=== PATIENT | male | born 1980 | race Caucasian/White ===

== ENCOUNTER 2019-11-17 09:40 | Emergency (ER) | payer OTHER, SELFPAY ==
[2019-11-17 10:08] VITALS: BP 122/86; PULSE 92; RESP 20; TEMP 36.6; O2SAT 100
--- NOTE | 2019-11-17 10:37 | ED.SKABFB ---
HPI - Skin/Abscess/Foreign Bdy General Chief complaint: Skin/Abscess/Foreign Body Stated complaint: poison sumac Time Seen by Provider: 11/17/19 10:37 Source: patient and RN notes reviewed Mode of arrival: ambulatory Limitations: no limitations History of Present Illness HPI narrative: This is a 39 years old male presents to the office for an evaluation of poison sumac rash. He noticed it 2 days ago on his left forearm and has now spread to his body and lower extremity. He admits to working out in the yard and wood. 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 Admits to history of poison chay/sumac rash a couple times a year during summer month. Normally he self treated because it is small however this time it is bigger and spread to multiple location. Denies rash on the face. He has tried calamine lotion with no relief. He is diabetic, sugar range between 90-105 fasting. Td is about 10-year, would like a booster. Related Data Home Medications Medication Instructions Recorded Confirmed fenofibrate 54 mg PO DAILY 11/17/19 11/17/19 lisinopril 10 mg PO DAILY 11/17/19 11/17/19 metformin 500 mg PO DAILY 11/17/19 11/17/19 Allergies Allergy/AdvReac Type Severity Reaction Status Date / Time meperidine AdvReac Intermediate Vomiting Verified 11/17/19 10:33 Review of Systems Review of Systems: Narrative: CONSTITUTIONAL: Denies fever, chills ENT: Denies tongue swelling, lip swelling or difficulty breathing CARDIOVASCULAR: Denies chest pain, palpitation, edema. RESPIRATORY: Denies dyspnea, wheezing, cough GASTROINTESTINAL: Denies abdominal pain, nausea, vomiting SKIN: Reports big rash on left arm, smaller rash on thighs and torso. MUSCULOSKELETAL: Denies joints pain NEUROLOGIC: Denies lightheaded All other systems reviewed are negative, except as documented in HPI. REPLACED BY [facility] Past Medical History Medical History Diabetic acidosis, type II HTN (hypertension) Comments At time of signature, I agree with nursing past medical, surgical, social and family history. There is no relevant family history pertinent to the presenting complaint. Exam Narrative: Exam Narrative: GENERAL: This is a well-nourished, well-developed patient, in no apparent distress. CARDIOVASCULAR: Regular rate and rhythm without murmurs, gallops, or rubs. RESPIRATORY: Clear to auscultation. Breath sounds equal bilaterally. No wheezes, rales, or rhonchi. GASTROINTESTINAL: Abdomen soft, non-tender, nondistended. Bowel sounds are active. No hepato-splenomegaly, or palpable masses. No guarding. NEURO: awake, alert, and oriented to person, place and time. There were no obvious focal neurologic abnormalities. Steady gait EXTREMITIES: left anterior forearm near AC noted erythema, vesicular lesions with linear streak. No rash noted on face or torso. Patient to decline to take his pants off for me to check the other as he brushed it off as a very minimal rash/lesions. [place] Coma Scale Eye Opening: Spontaneous 4 [place] Coma Scale Motor: Obeys Commands 6 Dov Coma Scale Verbal: Oriented 5 Course Vital Signs Vital signs: Vital Signs Temperature 97.8 F 11/17/19 10:08 Pulse Rate 92 11/17/19 10:08 Respiratory Rate 20 11/17/19 10:08 Blood Pressure 122/86 11/17/19 10:08 Pulse Oximetry 100 11/17/19 10:08 Temperature 97.8 F 11/17/19 10:08 Pulse Rate 92 11/17/19 10:08 Respiratory Rate 20 11/17/19 10:08 Blood Pressure 122/86 11/17/19 10:08 Pulse Oximetry 100 11/17/19 10:08 MDM - Skin/Abscess/Foreign Bdy MDM Narrative Medical decision making narrative: Discharge instructions reviewed with patient, as well as provided in writing per nursing staff. The instructions also include specific and strict return/GO TO THE ER as well as f/u information. All questions have been answered, and the patient deny any further questions with discharge and discharge plan. Differential Diagnosis Differential diagnosis
[2019-11-17] MEDS: TETANUS,DIPHTHERIA,AC PERTUSSIS ADULT (0.5 ML) BOOSTRIX IM (10:50)
== END 2019-11-17 11:10 | disposition home or self-care (01) ==
PROVIDERS: Emergency Provider Nurse Practitioner; PCP Nurse Practitioner Family
DX: L24.7 Irritant contact dermatitis due to plants, except food (principal); I10 Essential (primary) hypertension; E11.10 Type 2 diabetes mellitus with ketoacidosis without coma
CPT/HCPCS: 90471; 90715; 99213; G0463

== ENCOUNTER 2019-12-16 15:23 | Emergency (ER) | payer OTHER, SELFPAY ==
[2019-12-16 15:29] VITALS: BP 122/85; PULSE 118; RESP 16; TEMP 37.4; O2SAT 97
--- NOTE | 2019-12-16 16:14 | ED.SKABFB ---
HPI - Skin/Abscess/Foreign Bdy General Chief complaint: Skin/Abscess/Foreign Body Stated complaint: pos poison chay History of Present Illness HPI narrative: The patient, on a couple meds including for AODM, presents with skin eruption. Patient states he has 1/2-week history of pink, pruritic rash that he thinks began after his neighbor was burning poison chay. Symptoms are mild, unrelieved with OTC preparations like benadryl, only somewhat like prior contact dermatitis. There are no linear components, confluent areas with discharge but he does have some early pimples especially on his feet and trunk. Denies tick bite [though he does have a deer stand], fever, streaking, discharge. Related Data Home Medications Medication Instructions Recorded Confirmed fenofibrate 54 mg PO DAILY 11/17/19 11/17/19 lisinopril 10 mg PO DAILY 11/17/19 11/17/19 metformin 500 mg PO DAILY 11/17/19 11/17/19 Allergies Allergy/AdvReac Type Severity Reaction Status Date / Time meperidine AdvReac Intermediate Vomiting Verified 11/17/19 10:33 Review of Systems Review of Systems: Narrative: General/Constitutional: No weight loss,fever Eyes: N0: Redness,discharge Ears/Nose/Throat: No: Epistaxis,ear discharge Respiratory: Denies: Hemoptysis Gastrointestinal: No Vomiting, Bleeding-rectal Skin: No Lumps, REPORTS eruption Neurologic: No Focal Weakness,Sz Hematologic: Denies: Petechiae/Purpura Psychiatric: No: Suicida ideationl All Other Systems: Reviewed and Negative PMFSH Comments At time of signature, agree with nursing past medical, surgical, social and family history. There is no relevant family history pertinent to the presenting complaint Exam Narrative: Exam Narrative: General Appearance: Well-nourished/obese, Cooperative Head: Normocephalic Eye: PERRLA, Conjunctiva clear Ear: External ear normal Nose: Normal nose, Nare clear Mouth/Throat: Normal appearing Neck Exam: Supple Respiratory: Airway patent, No respiratory distress Musculoskeletal: Moves all extremities, Non tender Skin: Warm, Dry maculopapular and rarely papulovesicular eruption on trunk and extremities Neurological: A&O x3 Psychiatric: Normal mood, Normal affect Course Vital Signs Vital signs: Vital Signs Temperature 99.4 F 12/16/19 15:29 Pulse Rate 118 H 12/16/19 15:29 Respiratory Rate 16 12/16/19 15:29 Blood Pressure 122/85 12/16/19 15:29 Pulse Oximetry 97 12/16/19 15:29 Temperature 99.4 F 12/16/19 15:29 Pulse Rate 118 H 12/16/19 15:29 Respiratory Rate 16 12/16/19 15:29 Blood Pressure 122/85 12/16/19 15:29 Pulse Oximetry 97 12/16/19 15:29 Discharge Plan Discharge Clinical Impression: Folliculitis, Generalized pruritus Patient Disposition: Home, Self-Care Condition: Stable Instructions: Antibiotic Form, Folliculitis (ED) Additional Instructions: Try OTC preparations like Claritin, etc. for itch Prescriptions: New methylprednisolone [Medrol (Bret)] 4 mg tablets,dose pack See Rx Instructions .ROUTE .COMPLEX Qty: 21 RF: 0 clindamycin HCl 300 mg capsule 300 mg PO TID Qty: 15 RF: 0 No Action fenofibrate 54 mg tablet 54 mg PO DAILY RF: 0 metformin 500 mg tablet 500 mg PO DAILY RF: 0 lisinopril 10 mg tablet 10 mg PO DAILY RF: 0 Interventions: Discharge Disposition Last Done: 12/16/19 16:08 Follow-up/Referrals: Cancino,Mariya Perez APN [Primary Care Provider] - Discharge Date/Time: 12/16/19 16:05
== END 2019-12-16 16:05 | disposition home or self-care (01) ==
PROVIDERS: Emergency Provider Emergency Medicine; PCP Nurse Practitioner Family
DX: L73.9 Follicular disorder, unspecified (principal); L29.9 Pruritus, unspecified; I10 Essential (primary) hypertension; E11.9 Type 2 diabetes mellitus without complications
CPT/HCPCS: 99213; G0463

== ENCOUNTER 2020-11-20 12:19 | Emergency (ER) | payer OTHER, SELFPAY ==
[2020-11-20 12:25] VITALS: BP 126/75; PULSE 119; RESP 18; TEMP 36.7; O2SAT 98
--- NOTE | 2020-11-20 13:24 | ED.GENADULT ---
HPI - General Adult General Chief complaint: Ear Stated complaint: earache Time Seen by Provider: 11/20/20 13:25 Source: patient and RN notes reviewed Mode of arrival: ambulatory Limitations: no limitations History of Present Illness HPI narrative: 40-year-old male presents with complaints of left otalgia, upper respiratory infection symptoms, nasal congestion, and rhinorrhea for the past 3 days. Rik reports increasing muffled hearing and pain to LT ear over the past 24 hours. Afrin nasal spray with little relief. Denies drainage or tinnitus. Denies injury to ear. Rhinorrhea and nasal congestion. Denies cough. ?No high fevers or chills. ?Denies nausea, vomiting, and dizziness. Tolerating po intake well. Remains active. The patient reports he has not been diagnosed with COVID-19. The patient reports he is not waiting for the results of a COVID-19 lab test. The patient reports he does not have weakness, fatigue, or myalgia. The patient reports he does not have a new or worsening cough or shortness of breath. The patient reports he does not have any loss of taste or smell, sore throat, abdominal pain, and diarrhea. Denies recent traveling. Denies concerns for COVID-19 or exposures. At this time, the patient is not suspected of having COVID-19. Some parts of this dictation were generated by voice recognition software and may contain typographical and/or grammatical inaccuracies. Related Data Home Medications Medication Instructions Recorded Confirmed fenofibrate 54 mg PO DAILY 11/17/19 11/20/20 lisinopril 10 mg PO DAILY 11/17/19 11/20/20 metformin 500 mg PO DAILY 11/17/19 11/20/20 Allergies Allergy/AdvReac Type Severity Reaction Status Date / Time meperidine AdvReac Intermediate Vomiting Verified 11/20/20 12:27 Review of Systems Review of Systems: Narrative: CONSTITUTIONAL: Denies fever, chills, sweats. EYES: Denies visual changes, redness, discharge. ENT: Denies sore throat, ear drainage. Complaints of LT otalgia, decrease hearing, rhinorrhea, congestion. CARDIOVASCULAR: Denies chest pain, palpitations, edema. RESPIRATORY: Denies dyspnea, wheezing, cough. GASTROINTESTINAL: Denies abdominal pain, nausea, vomiting, diarrhea. GENITOURINARY: Denies dysuria, hematuria, abnormal discharge. SKIN: Denies rash or itching. MUSCULOSKELETAL: Denies acute back pain, joint pain, or myalgia. NEUROLOGIC: Denies numbness or focal weakness. PSYCHIATRIC: Denies anxiety or depression. All systems reviewed & are unremarkable except as noted in HPI and below. FORMERLY [facility] Past Medical History Medical History (Updated 11/24/20 @ 22:34 by RACHANA Negrete) Diabetic acidosis, type II HTN (hypertension) Umbilical hernia Surgical History Surgical History (Updated 11/24/20 @ 22:24 by RACHANA Negrete) History of hernia surgery umbilical Family History Family History (Updated 11/24/20 @ 22:25 by RACHANA Negrete) Father Unknown family medical history Mother Unknown family medical history Social History Social History (Updated 11/24/20 @ 22:26 by RACHANA Negrete) Smoking status: Former smoker Tobacco type: cigarettes Second hand tobacco smoke exposure: No Smoking end date: 05/04/11 Alcohol intake: current Substance use: never Substance use type: does not use Living arrangements: with family Occupation/Education: occupation Gender identity (if verbalized by the patient): Male Sexual Orientation (if Verbalized by the Patient): Straight or Heterosexual Comments At time of signature, I have reviewed and agree with the nursing past medical, surgical, social, and family history. Please see the nursing chart for further information. There is no relevant family history pertinent to the presenting complaint. Exam Narrative: Exam Narrative: GENERAL: This is a well-nourished, well-developed patient, in no apparent distress. Talks in full sentenc
[2020-11-20 13:44] VITALS: PULSE 100
== END 2020-11-20 13:44 | disposition home or self-care (01) ==
PROVIDERS: Emergency Provider Nurse Practitioner Family; PCP Nurse Practitioner Family
DX: H66.92 Otitis media, unspecified, left ear (principal); E11.10 Type 2 diabetes mellitus with ketoacidosis without coma; I10 Essential (primary) hypertension
CPT/HCPCS: 99203; 99213; G0463

== ENCOUNTER 2021-07-18 12:43 | Emergency (ER) | payer OTHER, SELFPAY ==
[2021-07-18 12:53] VITALS: BP 132/82; PULSE 100; RESP 12; TEMP 36.9; O2SAT 100
--- NOTE | 2021-07-18 13:08 | ED.EAR ---
HPI - Ear Problem General Chief complaint: Ear Stated complaint: Ear pain Time Seen by Provider: 07/18/21 13:05 Source: patient Mode of arrival: ambulatory Limitations: no limitations History of Present Illness HPI Narrative: Mr. Arenas is a 41-year-old male patient presenting to the clinic today with complaints of bilateral ear pain x1 to 2 days. He reports he just finished taking Augmentin for a bilateral ear infection 2 weeks ago. Has had recurrent ear infections recently. PCP has referred him to ENT however there is 1 month wait see the ENT. He denies any fever chills. States that the pain is a dull sharp pressure like pain and feels as though water is in his ears. He denies any ear discharge, runny nose, or cough MD Complaint: ear pain Location: bilateral Related Data Home Medications Medication Instructions Recorded Confirmed fenofibrate 54 mg PO DAILY 11/17/19 07/18/21 lisinopril 10 mg PO DAILY 11/17/19 07/18/21 metformin 500 mg PO DAILY 11/17/19 07/18/21 Allergies Allergy/AdvReac Type Severity Reaction Status Date / Time meperidine AdvReac Intermediate Vomiting Verified 07/18/21 12:57 Review of Systems Review of Systems: Pertinent positives per HPI. Patient denies any fever, chills, rash, headache, visual changes, dizziness, cough, runny nose, sore throat, shortness of breath, chest pain, palpitations, nausea, vomiting, diarrhea, constipation, abdominal pain, or any urinary issues. PMFSH Past Medical History Medical History Diabetic acidosis, type II HTN (hypertension) Umbilical hernia Surgical History Surgical History History of hernia surgery umbilical Family History Family History Father Unknown family medical history Mother Unknown family medical history Social History Social History Smoking status: Former smoker Tobacco type: cigarettes Second hand tobacco smoke exposure: No Smoking end date: 05/04/11 Alcohol intake: current Substance use: never Substance use type: does not use Gender identity (if verbalized by the patient): Male Sexual Orientation (if Verbalized by the Patient): Straight or Heterosexual Comments At the time of my signature, I reviewed and agree with the nursing past medical, surgical, social, and family history. There is no relevant family history pertinent to the patient complaint. Exam Narrative: General: Well-developed, obese, in no apparent distress Head: Normocephalic, atraumatic Eyes: Pupils equally round and reactive to light bilaterally, EOM intact, sclera and conjunctive clear, no discharge, lids normal Ears: Right TMs intact and clear with mild bulging, left TM intact, dull, mild bulging with fluid behind eardrum, ear canals mildly red without exudate, no drainage, grossly hearing normal. Nose: Nares patent, clear discharge, no inflammation, no sinus tenderness. Mouth: Oropharynx without lesions or masses, good dentition, MMM. Neck: Supple, trachea midline, no enlargement of anterior or posterior cervical nodes, no thyroid masses or goiter palpable. Cardio: Regular rate and rhythm, s1 and s2 normal, no murmur appreciated. Resp: Clear to auscultation bilaterally anteriorly and posteriorly, no rhonchi, rales, wheezing or rubs Course Course Emergency Course: Portions of this record may have been created with voice recognition software. Level of Care: Express Care Visit Vital Signs Vital signs: Vital Signs Temperature 36.9 C 07/18/21 12:53 Pulse Rate 100 07/18/21 12:53 Respiratory Rate 12 07/18/21 12:53 Blood Pressure 132/82 07/18/21 12:53 Pulse Oximetry 100 07/18/21 12:53 Temperature 36.9 C 07/18/21 12:53 Pulse Rate 100 07/18/21 12:53
== END 2021-07-18 13:14 | disposition home or self-care (01) ==
PROVIDERS: Emergency Provider Nurse Practitioner Family; PCP Nurse Practitioner Family
DX: H65.05 Acute serous otitis media, recurrent, left ear (principal); H69.93 Unspecified Eustachian tube disorder, bilateral; Z87.891 Personal history of nicotine dependence; E11.10 Type 2 diabetes mellitus with ketoacidosis without coma; Z79.84 Long term (current) use of oral hypoglycemic drugs; I10 Essential (primary) hypertension
CPT/HCPCS: 99213; G0463

== ENCOUNTER 2022-02-01 07:20 | Emergency (ER) | payer OTHER, SELFPAY ==
--- NOTE | ~2022-02-01 | XR_ITS ---
XR lumbar spine 2-3V 02/01/2022 07:46 Indication: Back pain Procedure: 3 views lumbar spine after recent fall Comparison: No prior studies for comparison. Findings: Normal lumbar lordosis. Vertebral body and disc heights are preserved. No acute fracture, s ubluxation or dislocation. There is atherosclerosis of the aorta. There are surgical changes of ventr al hernia repair. Impression: 1: No acute abnormality of the lumbar spine. Reviewed, dictated and finalized at location B. Impression: 1: No acute abnormality of the lumbar spine.
[2022-02-01 07:22] VITALS: BP 161/89; PULSE 93; RESP 20; TEMP 36.4; O2SAT 100
[2022-02-01] MEDS: CYCLOBENZAPRINE HCL 10 MG TABLET PO (07:37)
[2022-02-01] MEDS: KETOROLAC 30 MG/ML VIAL (*BKC) IM (07:37)
--- NOTE | 2022-02-01 07:56 | ED.FALL ---
HPI - Fall General Chief Complaint: Fall Stated Complaint: fall at work Time Seen by Provider: 02/01/22 07:25 History of Present Illness HPI Narrative: Pt was picking up heavy object with rolling cart and it gave way and he fell backward landing on buttocks on ground. Pt complains of pain across low back and down back of right leg. Pt denies numbness or weakness or problems with bladder or bowels. Pt denies head injury or LOC or other complaints. Related Data Home Medications Medication Instructions Recorded Confirmed fenofibrate 54 mg tablet 54 mg PO DAILY 11/17/19 07/18/21 lisinopril 10 mg tablet 10 mg PO DAILY 11/17/19 07/18/21 metformin 500 mg tablet 500 mg PO DAILY 11/17/19 07/18/21 Allergies Allergy/AdvReac Type Severity Reaction Status Date / Time meperidine AdvReac Intermediate Vomiting Verified 07/18/21 12:57 Review of Systems Review of Systems: All systems reviewed & are unremarkable except as noted in HPI and below PMFSH Past Medical History Medical History Diabetic acidosis, type II HTN (hypertension) Umbilical hernia Surgical History Surgical History History of hernia surgery umbilical Family History Family History Father Unknown family medical history Mother Unknown family medical history Social History Social History Smoking status: Former smoker Tobacco type: cigarettes Second hand tobacco smoke exposure: No Smoking end date: 05/04/11 Alcohol intake: current Substance use: never Substance use type: does not use Gender identity (if verbalized by the patient): Male Sexual Orientation (if Verbalized by the Patient): Straight or Heterosexual Exam Const: General: healthy appearing and no acute distress Nutritional Appearance: well nourished Orientation/consciousness: patient oriented x3 Limitations: no limitations HENMT: Head: normal to inspection Eyes: Conjunctivae: conjunctivae normal EOM: EOMs intact bilaterally Neck: Neck: normal visual inspection, no lymphadenopathy and no meningeal signs Resp: Effort & Inspection: normal respiratory effort Cardio: Rate: regular rate Rhythm: regular rhythm GI: Auscultation: normal bowel sounds Back/Spine/Pelvis: Other: tender acorss low back with some spasm no point midline tenderness Skin: General skin exam: normal color Rashes: no rashes Wounds: no wounds Neuro: General: patient oriented x3, moves all extremities, no meningeal signs and no focal motor deficits Cranial nerves: Yes Nystagmus not present Speech: normal speech Other: sttrength full in lower extremities b/l slr neg Extrem: General: normal to inspection and no clubbing, cyanosis or edema Psych: Mental Status: mental status grossly normal Affect: normal affect Attitude: cooperative Course Vital Signs Vital signs: Vital Signs Temperature 97.6 F 02/01/22 07:22 Pulse Rate 93 02/01/22 07:22 Respiratory Rate 20 02/01/22 07:22 Blood Pressure 161/89 H 02/01/22 07:22 Pulse Oximetry 100 02/01/22 07:22 Oxygen Delivery Room Air 02/01/22 07:22 Temperature 97.6 F 02/01/22 07:22 Pulse Rate 93 02/01/22 07:22 Respiratory Rate 20 02/01/22 07:22 Blood Pressure 161/89 H 02/01/22 07:22 Pulse Oximetry 100 02/01/22 07:22 Oxygen Delivery Room Air 02/01/22 07:22 Discharge Plan Discharge Clinical Impression: Low back pain Patient Disposition: Home, Self-Care Condition: Improved Instructions: Antibiotic Form, Back Pain (ED) Prescriptions: New ibuprofen 800 mg tablet 800 mg PO TID Qty: 30 0RF cyclobenzaprine 10 mg tablet 10 mg PO TID Qty: 14 0RF hydrocodone-acetaminophen 5-325 mg tablet 1 tablet PO Q4H PRN ([place]
== END 2022-02-01 08:42 | disposition home or self-care (01) ==
PROVIDERS: Emergency Provider Emergency Medicine; PCP Nurse Practitioner Family
DX: S39.92XA Unspecified injury of lower back, initial encounter (principal); I10 Essential (primary) hypertension; Z79.84 Long term (current) use of oral hypoglycemic drugs; Z87.891 Personal history of nicotine dependence; W18.39XA Other fall on same level, initial encounter
CPT/HCPCS: 72100; 96372; 99283; A9270; J1885

== ENCOUNTER 2022-06-19 15:24 | Emergency (ER) | payer OTHER, SELFPAY ==
--- NOTE | 2022-06-19 15:28 | ED.EAR ---
HPI - Ear Problem General Chief complaint: Ear Stated complaint: Ear Pain Source: patient and RN notes reviewed History of Present Illness HPI Narrative: 42-year-old male presents to urgent care with complaints of left ear pain that started today. Denies any fevers, chills, congestion, or sore throat. Patient states he gets ear infections often, last 1 was approximately 5-6 months ago. Patient states amoxicillin usually does not work and has to be placed on something stronger. Some parts of this dictation were generated by voice recognition software and may contain typographical and/or grammatical inaccuracies. Related Data Home Medications Medication Instructions Recorded Confirmed fenofibrate 54 mg tablet 54 mg PO DAILY 11/17/19 06/19/22 lisinopril 10 mg tablet 10 mg PO DAILY 11/17/19 06/19/22 metformin 500 mg tablet 500 mg PO DAILY 11/17/19 06/19/22 Allergies Allergy/AdvReac Type Severity Reaction Status Date / Time meperidine AdvReac Intermediate Vomiting Verified 06/19/22 15:32 Review of Systems Review of Systems: CONSTITUTIONAL: Denies fever, chills, or sweats. EYES: Denies visual changes, redness, or discharge. ENT: Reports left ear pain CARDIOVASCULAR: Denies chest pain, palpitations, or edema. RESPIRATORY: Denies cough or dyspnea. GASTROINTESTINAL: Denies abdominal pain, nausea, vomiting, or diarrhea. GENITOURINARY: Denies dysuria or hematuria. SKIN: Denies rash or itching. MUSCULOSKELETAL: Denies back pain, joint pain, or myalgia. NEUROLOGIC: Denies headache, numbness, or weakness. [facility] Past Medical History Medical History Diabetic acidosis, type II HTN (hypertension) Umbilical hernia Surgical History Surgical History History of hernia surgery umbilical Family History Family History Father Unknown family medical history Mother Unknown family medical history Social History Social History Smoking status: Former smoker Tobacco type: cigarettes Second hand tobacco smoke exposure: No Smoking end date: 05/04/11 Alcohol intake: current Substance use: never Substance use type: does not use Living arrangements: with family Occupation/Education: occupation Gender identity (if verbalized by the patient): Male Sexual Orientation (if Verbalized by the Patient): Straight or Heterosexual Comments At the time of my signature, I reviewed and agree with the nursing past medical, surgical, social, and family history. There is no relevant family history pertinent to the patient complaint. Exam Narrative: GENERAL: This is a well-nourished, well-developed patient, in no apparent distress. HEAD: normocephalic, atraumatic. EYES: PERRL. Sclera clear/white. Vision is grossly intact. EARS: External ears normal. Left TM noted to be erythremic, bulging, with white exudate against the bottom of TM. NOSE: External nose normal with no obvious nasal discharge, nares without redness, no rhinorrhea. THROAT: Mucous membranes moist, posterior pharynx clear. NECK: Neck supple, non-tender without lymphadenopathy, masses or thyromegaly. CARDIOVASCULAR: Tachycardic RESPIRATORY: No respiratory distress. SKIN: warm, intact with no suspicious lesions or rash, good texture and turgor. NEURO: awake, alert, and oriented to person, place and time. There were no obvious focal neurologic abnormalities. Course Course Level of Care: Express Care Visit Vital Signs Vital signs: Vital Signs Temperature 98.6 F 06/19/22 15:30 Pulse Rate 124 H 06/19/22 15:30 Respiratory Rate 20 06/19/22 15:30 Blood Pressure 129/98 H 06/19/22 15:30 Pulse Oximetry 98 06/19/22 15:30 Oxygen Delivery Room Air 06/19/22 15:30 Temperature 9
[2022-06-19 15:30] VITALS: BP 129/98; PULSE 124; RESP 20; TEMP 37; O2SAT 98
== END 2022-06-19 15:43 | disposition home or self-care (01) ==
PROVIDERS: Emergency Provider Nurse Practitioner Family; PCP Nurse Practitioner Family
DX: H66.92 Otitis media, unspecified, left ear (principal); Z87.891 Personal history of nicotine dependence; I10 Essential (primary) hypertension; E11.10 Type 2 diabetes mellitus with ketoacidosis without coma; Z79.84 Long term (current) use of oral hypoglycemic drugs
CPT/HCPCS: 99213; G0463

== ENCOUNTER 2025-02-26 09:02 | Emergency (ER) | payer OTHER, SELFPAY ==
--- NOTE | 2025-02-26 09:07 | ED.URI ---
HPI - URI/Sore Throat General Chief Complaint: Upper Respiratory Infection Stated Complaint: URI symptoms Time Seen by Provider: 02/26/25 09:11 Source: patient, RN notes reviewed and old records reviewed Mode of arrival: ambulatory Limitations: no limitations History of Present Illness HPI Narrative: 44-year-old male presents to the [facility] with complaints of 1 day history of URI symptoms, bilateral ear pain. Has taken Tylenol and ibuprofen. States that he does take Claritin daily. Recently had surgery to have his gallbladder and his appendix removed. Denies taking any medication to help symptoms. Onset (ago): day(s) (1) Related Data Home Medications ?Medication ?Instructions ?Recorded ?Confirmed ?Last Taken ?Type fenofibrate 54 mg tablet 54 mg PO DAILY 11/17/19 06/19/22 Unknown History lisinopril 10 mg tablet 10 mg PO DAILY 11/17/19 06/19/22 Unknown History metformin 500 mg tablet 500 mg PO DAILY 11/17/19 06/19/22 Unknown History Allergies Allergy/AdvReac Type Severity Reaction Status Date / Time meperidine AdvReac Intermediate Vomiting Verified 02/26/25 09:06 Review of Systems Review of Systems: All systems reviewed & are unremarkable except as noted in HPI and below Constitutional: Constitutional: Reports no additional constitutional complaints ENT: Reports as per HPI, Reports otalgia, Reports nasal congestion and Reports nasal discharge Cardiovascular: Cardiovascular: Reports no additional cardiovascular complaints, Denies chest pain and Denies dyspnea Respiratory: Respiratory: Reports no additional respiratory complaints, Denies chest congestion, Denies cough and Denies dyspnea Musculoskeletal: Musculoskeletal: Reports no additional musculoskeletal complaints Integumentary/Breasts: Skin/Breast: Reports system reviewed and no additional complaints, except as docu PMFSH Past Medical History Medical History Umbilical hernia HTN (hypertension) Diabetic acidosis, type II Surgical History Surgical History Hx of cholecystectomy 01/2025 History of appendectomy 01/2025 History of hernia surgery umbilical Family History Family History Father Unknown family medical history Mother Unknown family medical history Social History Social History Smoking status: Former smoker Tobacco type: cigarettes Second hand tobacco smoke exposure: No Smoking end date: 05/04/11 Alcohol intake: current Substance use: never Substance use type: does not use Living arrangements: with family Occupation/Education: occupation Gender identity (if verbalized by the patient): Male Sexual Orientation (if Verbalized by the Patient): Straight or Heterosexual Comments At the time of my signature, I reviewed and agree with the nursing past medical, surgical, social, and family history. There is no relevant family history pertinent to the patient complaint. Exam Const: General: cooperative, no acute distress, well developed, alert, uncomfortable and well nourished Nutritional Appearance: well nourished and obese Orientation/consciousness: patient oriented x3 Limitations: no limitations HENMT: Head: normal to inspection Ears: hearing grossly normal bilaterally, external ears normal, EAC's normal, mastoids normal, no periauricular adenopathy and TM abnormal with fluid behind the TM bilateral; not bulging, not erythematous and with no loss of landmarks Face/Nose/Sinus: Normal external nose present and Nasal discharge present clear bilateral Mouth: Yes Normal oral and palatal mucosa present, Yes tongue normal and Yes moist mucous membranes Throat: posterior oropharynx normal, uvula midline and no uvular edema Eyes: General: appearance normal, both eyes and all related structures Alignment and Position: alignment normal Eyelids: eyelids normal Neck: Neck: normal visual inspection, full ROM, no lymphadenopathy and no meningeal signs Chest: Chest palpation & inspection: normal inspection of the chest Resp: Effort & Inspection: normal respiratory effort and able to speak in complete sentences Auscultation: clear to auscultation bilaterally, no crackles, no rales, no rhonchi and no wheezes Cardio: Rate: regular rate Skin: General skin exam: normal color and no rashes or lesions noted Neuro: General: patient oriented x3, gait normal, moves all extremities and no meningeal signs Cognition (Neuro): normal cognition Speech: normal speech Gait exam (Neuro): Normal gait present Extrem: General: normal to inspection, full ROM, capillary refill normal and normal gait Psych: Appearance: grossly normal and well kempt Mental Status: mental status grossly normal Speech and movement: Normal speech and movement present and Clear speech present Affect: normal affect Attitude: cooperative Course Course Level of Care: Express Care Visit Vital Signs Vital signs: Vital Signs Temperature 97.5 F L 02/26/25 09:17 Pulse Rate 105 H 02/26/25 09:17 Respiratory Rate 18 02/26/25 09:17 Blood Pressure 152/97 H 02/26/25 09:17 Pulse Oximetry 99 02/26/25 09:17 Oxygen Delivery Room Air 02/26/25 09:17 Temperature 97.5 F L 02/26/25 09:17 Pulse Rate 105 H 02/26/25 09:17 Respiratory Rate 18 02/26/25 09:17 Blood Pressure 152/97 H 02/26/25 09:17 Pulse Oximetry 99 02/26/25 09:17 Oxygen Delivery Room Air 02/26/25 09:17 Reviewed MDM - URI/Sore Throat MDM Narrative Medical decision making narrative: Patient presents to the [facility] with 1 day history of URI symptoms. Flu and COVID negative. Denies sore throat. Patient 2 day post surgical history of appendectomy and cholecystectomy. Placement with clear nasal discharge. No other acute findings noted on exam patient appropriate for outpatient treatment with close follow-up Discharge instructions reviewed with patient, as well as provided in writing per nursing staff. The instructions also include specific and strict return/GO TO THE ER as well as f/u information. All questions have been answered, and the patient deny any further questions with discharge and discharge plan. Some parts of this dictation were generated by voice recognition software and may contain typographical and/or grammatical inaccuracies. Differential Diagnosis Differential diagnosis: Likely upper respiratory infection, otitis media, sinusitis, viral infection, bronchitis, influenza and pharyngitis Lab Data Labs: Lab Results 02/26/25 Range/Units 09:30 POC Influenza A Ag Negative (Negative) POC Influenza B Ag Negative (Negative) POC SARS CoV-2 Ag Negative (Negative) reviewed Critical Care Time Critical Care Time Critical Care Time: No Discharge Plan Discharge Clinical Impression: Sinusitis, Upper respiratory infection, Post-nasal drainage, Acute serous otitis media, bilateral Patient Disposition: Home Condition: Stable Instructions: Sinusitis (ED), Fluid In The Ear (Serous Otitis Media) (ED), Postnasal Drip (DC) Additional Instructions: today your blood pressure is 152/97. Is recommended you follow-up with primary care provider within 2 weeks to have this rechecked. Your rapid COVID test were negative Your rapid flu test was negative Your symptoms are likely due to a viral illness, which is not treated with antibiotics. Typically viral infections last 7-10 days, can linger for couple of weeks. It is very important to treat your symptoms. Drink plenty of water, Gatorade, Pedialyte, ice pops or Jell-O. -Alternate Tylenol and Motrin per package directions for fever or pain. You can alternate every 4 hours -Antihistamine medication such as Zyrtec/Claritin/Mercy during the day can help improve symptoms. -doing daily nasal irrigations can help relieve pressure your sinuses. Things like a Neti pot -Use Flonase twice a day for 5 days then daily to help reduce the inflammation and dry up your sinuses. -You can also use Mucinex. Be sure to drink plenty of water with this medication at least 8 ounces with every dose and it is important to drink 8 to 10 glasses of water per day. Water is a natural decongestant -Eat and drink things that are easy to swallow, like tea or soup, or popsicles. -Oral rinses such as: Salt water gargles and/or may use topical anesthetic (eg. Chloraseptic spray) or lozenges to relieve dryness or throat pain). -Frequent hand washing or hand dial refinisher is one of the best ways to prevent spread of infection. -Using a vaporizer or humidifier at night will also help thin secretions and help with coughing up phlegm. -Follow up with primary care provider in 7-10 days if condition is not improving - For new or worsening symptoms go directly to the nearest ER Patient Language: [place] Prescriptions: No Action fenofibrate 54 mg tablet 54 mg PO DAILY metformin 500 mg tablet 500 mg PO DAILY lisinopril 10 mg tablet 10 mg PO DAILY Follow-up/Referrals: Barak,Mariya Perez APN [Primary Care Provider, Unknown] - 1 Week Time of Disposition: 09:31
[2025-02-26 09:17] VITALS: BP 152/97; PULSE 105; RESP 18; TEMP 36.4; O2SAT 99
--- OUTSIDE RECORDS SUMMARY | 2025-02-26 09:30 | XMS_ITS | Clinical Summary ---
Author Organization [facility] Address [address] [place] [address] Care Team Providers Care Newspaper Subscription Solicitor Name Role Phone BarakTreMariyapriscila Fowler NP Primary Care Provider Allergies Active Allergy Reactions Criticality Noted Date Comments Meperidine Nausea & Vomiting,Vomiting Low 6 Medications fenofibrate (TRICOR) 54 mg tablet TAKE 1 TABLET BY MOUTH EVERY DAY WITH MEALS 6 9 Active lisinopril (PRINIVIL,ZESTR IL) 10 mg tablet Take 1 tablet (10 mg total) by mouth daily 6 9 Active albuterol HFA (PROVENTIL HFA,VENTOLIN HFA,PROAIR HFA) 90 mcg/actuation inhaler INHALE TWO PUFFS BY MOUTH EVERY SIX HOURS NEEDED FOR COUGH 0 9 Active gabapentin (NEURONTIN) 300 mg capsule TAKE 1 CAPSULE DAILY AT NIGHT FOR 7 DAYS, THEN TAKE 2 CAPSULES DAILY AT NIGHT THEREAFTER 0 9 Active traMADol (ULTRAM) 50 mg tablet tramadol 50 mg tablet Active Active Problems Problem Noted Date Diagnosed Date Jaundice 09/26/2024 Surgical History Surgery Date Site/Laterality Comments HERNIA REPAIR Medical History Medical History Date Comments Hypertension Hypercholesteremia Diabetes mellitus Family History Medical History Relation Name Comments Diabetes Mother Hypertension Mother Relation Name Status Comments Mother Social History Tobacco Use Types Packs/Day Years Used Date Smoking Tobacco: Former Smokeless Tobacco: Never Personal Safety Answer Date Recorded Have you ever been in or are you currently in a harmful physical or emotional relationship or is someone making you feel afraid or unsafe? 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 Gender Identity Not on file Sexual Orientation Not on file Obstetrics History Last Filed Vital Signs Vital Sign Reading Time Taken Comments Blood Pressure 149/95 09/26/2024 7:54 PM CDT Pulse 86 09/26/2024 7:54 PM CDT Temperature 36.5 C (97.7 F) 09/26/2024 7:54 PM CDT Respiratory Rate 18 09/26/2024 7:54 PM CDT Oxygen Saturation 98% 09/26/2024 7:54 PM CDT Inhaled Oxygen Concentration - - Weight 113.4 kg (250 lb) 09/26/2024 12:40 AM CDT Height 172.7 cm (5' 8) 09/26/2024 12:40 AM CDT Body Mass Index 38.01 09/26/2024 12:40 AM CDT Plan of Treatment Health Maintenance Due Date Last Done Comments Depression Screening 1981 Hepatitis C Screening 1981 Varicella Vaccines (1 of 2 - 13+ 2-dose series) 1994 Regular Well Visit/Exam 18-64 1999 HPV Vaccines (1 - 3-dose SCDM series) 2008 Influenza Vaccine (#1) 2024 DTaP/Tdap/Td Vaccine (8 - Td or Tdap) 01/17/2033 01/17/2023, 04/30/2009, 07/08/1996, Additional history exists Hepatitis B Screening Completed 01/12/1997 , 07/08/1996, 12/12/1995 Pneumococcal vaccine <65 Aged Out No longer eligible based on patient's age to complete this topic Insurance [facility] WORK[employer] COMPENSATION GENERIC Advance Directives For more information, please contact: [phone] * Full Code (Latest Code Status on File) Date Activated Date Inactivated Comments 09/26/2024 12:40 AM 09/27/2024 3:02 AM Care Teams Newspaper Subscription Solicitor Relationship Specialty Start Date End Date Mariya Cancino NP [address] [place] [address] PCP - General Nurse Practitioner 08/02/18
--- OUTSIDE RECORDS SUMMARY | 2025-02-26 09:30 | XMS_ITS | Clinical Summary ---
Author Organization [facility] Address [address] [place] [address] Phone Care Team Providers Care Customs Examiner Name Role Phone Mariya Cancino APRN, CNP Primary Care Provider [phone] Allergies Active Allergy Reactions Criticality Noted Date Comments Meperidine Vomiting 06/18/2015 Medications metFORMIN (GLUCOPHAGE) 500 MG Tablet Take 500 mg by mouth 2 times daily (with meals). Active lisinopril (PRINIVIL, ZESTRIL) 10 MG Tablet Take 10 mg by mouth daily. Active fenofibrate (LOFIBRA) 54 MG Tablet Take 54 mg by mouth daily. Active albuterol 108 (90 Base) MCG/ACT Aerosol Solution take 2 Puffs by inhalation every 6 hours as needed for Cough. 1 Inhaler 9 Active diphenhydrAMINE (BENADRYL) 25 MG Capsule Take 1-2 Caps by mouth every 6 hours as needed for Itching. 20 Cap 9 Active famotidine (PEPCID) 20 MG Tablet Take 1 Tab by mouth 2 times daily. 20 Tab 9 Active Immunizations Immunization Administration Dates Next Due TDAP Vaccine 01/17/2023 Social History Tobacco Use Types Packs/Day Years Used Date Smoking Tobacco: Former Smokeless Tobacco: Never Alcohol Use Standard Drinks/Week Comments Not Currently 0 (1 standard drink = 0.6 oz pur e alcohol) OCCASIONAL Sex and Gender Information Value Date Recorded Sex Assigned at Not on file Legal Sex Male 10:55 PM CDT Gender Identity Not on file Sexual Orientation Not on file Last Filed Vital Signs Vital Sign Reading Time Taken Comments Blood Pressure 143/94 09/25/2024 11:36 PM CDT Pulse 105 09/25/2024 11:37 PM CDT Temperature 37.2 C (99 F) 09/25/2024 9:29 AM CDT Respiratory Rate 16 09/25/2024 11:36 PM CDT Oxygen Saturation 97% 09/25/2024 11:37 PM CDT Inhaled Oxygen Concentration - - Weight 113.4 kg (250 lb) 09/25/2024 9:29 AM CDT Height 172.7 cm (5' 8) 09/25/2024 9:29 AM CDT Body Mass Index 38.01 09/25/2024 9:29 AM CDT Plan of Treatment Health Maintenance Due Date Last Done Comments Human Papillomavirus (HPV) Immunization (1 - 3-dose SCDM series) 2008 Influenza Immunization (#1) 2024 SARS-COV-2 Immunization ( season) 2024 Td Immunization Every 10 Years (Adults With 1 Tdap) 01/17/2033 01/17/2023, 04/30/2009, 07/08/1996 Respiratory Syncytial Virus (RSV) Immunization (Adult) (1 - 1-dose 75+ series) 2056 Hepatitis B Immunization Completed 997, 07/08/1996, 12/12/1995 DTaP/Tdap/Td Immunization Discontinued 2022, 04/30/2009, 07/08/1996, Additional history exists Hepatitis C Virus (HCV) Screening Completed 09/25/2024, 05/01/2015 Meningococcal Immunization (ACWY) Aged Out No longer eligible based on patient's age to complete this topic Pneumococcal Immunization Combined Aged Out No longer eligible based on patient's age to complete this topic Rotavirus Immunization Aged Out No lo nger eligible based on patient's age to complete this topic Procedures Procedure Name Priority Date/Time Associated Diagnosis Comments HEPATITIS PANEL ACUTE (AHP) STAT 09/25/2024 9:55 AM CDT from Last 3 Months or Most Recently Relevant to Health Maintenance Results * Hepatitis Panel Acute (AHP) (09/25/2024 9:55 AM CDT) HEPATITIS A IGM ANTIBODY NON DETECTED NON DETECTED 09/25/2024 10:16 PM CDT [facility] Comment: IGM Antibodies to HAV not detected. Does not exclude early acute or recovered HAV infection. HEP B CORE AB (IGM) NON DETECTED NON DETECTED 09/25/2024 10:16 PM CDT [facility] Comment:IGM anti-HBC not det ected. Does not exclude the possibility of exposure to or infection with HBV. HEPATITIS B SURFACE ANTIGEN NON DETECTED NON DETECTED 09/25/2024 10:16 PM CDT [facility] Comment:A nonreactive test r esult does not exclude the possibility of exposure to or infection with Hepatitis B virus. A nonreactive test result in individuals with prior exposure to hepatitis B may be due to antigen levels below the detection limit of this assay or lack of antigen reactivity to the antibodies in this assay. hepatitis C antibody 0.14 <1 S/CO 09/25/2024 10:16 PM CDT [facility] Comment: Signal/Cutoff ratio < 0.79 is Nondetected Signal/Cutoff ratio 0.80-0.99 is Grayzone Signal/Cutoff ratio > 0.99 is Detected Supplemental assays are recommended if signal/cutoff ratio is >/=1.00. Signal/cutoff ratio result >/= 5.00 is 97% predictive of positivity for recombinant immunoblot assay (RIBA) and will be reported to the [place] Department of Public Health as required. Blood Venipuncture / Unknown 09/25/2024 9:55 AM CDT 09/25/2024 3:30 PM CDT us Michael Mcnair MD HEMATOLOGY ORDERABLES Final Resu lt [facility] [address] [place] [address], [place] from Last 3 Months or Most Recently Relevant to Health Maintenance Insurance [employer] Care Teams Customs Examiner Relationship Specialty Start Date End Date Cancino, UMA Meraz, PAARMJIT PCP - General Family Medicine 12/18/15
--- OUTSIDE RECORDS SUMMARY | 2025-02-26 09:30 | XMS_ITS | Encounter Summary ---
Author Organization [facility] Health Address [address] [place] [address] Care Team Providers Care Cryptologic Technician Operator/Analyst Name Role Phone Mariya Cancino SAFEKEEPING CLERK-CAMPAIGN ANALYST Primary Care Provider [phone] Encounter Details Date Type Department Care Team (Late st Contact Info) Description 09/26/2024 Telephone [facility] PHYS STANDARD [address] [place] [address] Deyvi Pena MD [address] [address] [facility] [place] [address] Social History Tobacco Use Types Packs/Day Years Used Date Smoking Tobacco: Former Cigarettes Q uit: 04/30/2011 Passive Smoke Exposure: Current Alcohol Use Standard Drinks/Week Comments Not Currently 0 (1 standard drink = 0.6 oz pur e alcohol) AUDIT-C Answer Date Recorded Q1: How often do you have a drink containing alc ohol? Monthly or less 09/26/2024 Q2: How many drinks containi ng alcohol do you have on a typical day when you are drinking? 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 No 09/26/2024 9:55 PM GUIT Joe Callejas RN Is person blind or have seri ous difficulty seeing? No 09/26/2024 9:55 PM GUIT Joe Callejas RN Does person have serious dif ficulty walking/climbing stairs? No 09/26/2024 9:55 PM Lilliana De Paz cia, RN Does person have difficulty dressing/bathing? No 09/26/2024 9:55 PM Joe De Paz RN Does person have difficulty doing errands alone? No 09/26/2024 9:55 PM Joe De Paz RN Does person have difficulty concentrating/remembering/making decisions? No 09/26/2024 9:55 PM Joe De Paz RN * Question Answer Date of Assessment Author Q1: How often do you have a drink containing alcohol? Monthly or less 09/26/2024 9:53 PM Joe De Paz RN Q2: How many drinks containing alcohol do you have on a typical day when you are drinking? 1 or 2 09/26/2024 9:53 PM Joe De Paz RN documented as of this encounter Plan of Treatment Not on file documented as of this encounter Visit Diagnoses Not on filedocumented in this encounter Care Teams Cryptologic Technician Operator/Analyst Relationship Specialty Start Date End Date Mariya Cancino APRN-PARAMJIT [address] [place] [id number] PCP - General 07/24/16 documented as of this encounter
--- OUTSIDE RECORDS SUMMARY | 2025-02-26 09:30 | XMS_ITS | Clinical Summary ---
Author Organization [facility] [employer] Address [address] [place] [address] Care Team Providers Care Asthma Educator Name Role Phone Mariya Cancino APRN-[employer] OPERATOR Primary Care Provider [phone]- [phone] Source Comments [facility],non-owned Affiliates and Associated Physician Practices is amultiple site organization consisting of ambulatory clinics and hospital sitesin [place], [place], [place] and [place]. This disclosure is being madepursuant to the Care Everywhere program and may not contain all information available regarding this patient. Last updated 18.[facility] Allergies Active Allergy Reactions Criticality Noted Date Comments Meperidine Nausea and/or Vomiting Low 07/24/2016 Medications * Be aware that medications may not be up to date on this document. Alwaysverify current medications with the patient. metFORMIN (GLUCOPHAGE) 500 MG tablet Take 2 (two) tablets by mouth 2 times daily with morning and evening meal 07/24/2016 Active lisinopril (Prinivil; Zestril) 5 MG tablet Take 1 (one) tablet by mouth once daily 07/24/2016 Active fenofibrate (LOFIBRA) 54 MG tablet Take 1 (one) tablet by mouth 07/24/2016 Active Multiple Vitamin (ONE-A-DAY MENS PO) Take 1 tablet by mouth once daily Active ibuprofen (Motrin) 600 MG tablet Take 1 (one) tablet by mouth every 6 hours 30 tablet 02/24/2025 Active acetaminophen (Tylenol) 325 MG tablet Take 2 (two) tablets by mouth every 6 hours 60 tablet 02/24/2025 Active Active Problems Problem Noted Date Diagnosed Date 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 Symptomatic cholelithiasis 11/12/2024 HTN (hypertension) 09/28/2024 Obstructive jaundice 09/28/2024 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 Jaundice 09/26/2024 Transaminitis 09/26/2024 Resolved Problems Problem Noted Date Diagnosed Date Resolved Date Encounter for other general counseling and advice on contraception 07/24/2016 09/26/2024 Encounters Date Type Department Care Team Description 02/24/2025 7:26 AM CDT Anesthesia Event [facility] [address] [place] [address] Daniel Dhaliwal MD 02/24/2025 7:15 AM CDT - 02/24/2025 9:36 AM CDT Surgery [facility] [address] [place] [phone] Birdie Huang MD LAPAROSCOPIC APPENDECTOMY, LAPAROSCOPIC CHOLECYSTECTOMY 02/24/2025 5:23 AM CDT - 02/24/2025 11:40 AM CDT Hospital Encounter [facility] [address] [place] [phone] Birdie uHang MD Surgery General Discharge Disposition: Home or Self Care 02/24/2025 Travel 02/18/2025 Travel 01/13/2025 Telephone [facility] - General Surgery [address] [place] [phone] Birdie Huang MD Surgery Scheduling (Surgery confirmation call...) 01/13/2025 Telephone [facility] - General Surgery [address] [place] [phone] Birdie Huang MD Surgery Scheduling from Last 3 Months Family History Medical History Relation Name Comments Diabetes Maternal Grandmother Diabetes Mother Hypertension Mother Relation Name Status Comments Maternal Grandmother Mother Social History Tobacco Use Types Packs/Day Years Used Date Smoking Tobacco: Former Cigarettes Q uit: 04/30/2011 Passive Smoke Exposure: Current Alcohol Use Standard Drinks/Week Comments Not Currently 0 (1 standard drink = 0.6 oz pur e alcohol) PHQ-2 Answer Date Recorded Patient Health Questionnaire-2 Score 0 11/12/2024 AUDIT-C Answer Date Recorded Q1: How often do you have a drink containing alcohol? Never 02/24/2025 Q2: How many drinks containi ng alcohol do you have on a typical day when you are drinking? Patient does not drink Q3: How often do you have si x or more drinks on one occasion? 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 Gender Identity Not on file Sexual Orientation Not on file Last Filed Vital Signs Vital Sign Reading Time Taken Comments Blood Pressure 120/84 02/24/2025 11:27 AM CDT Pulse 102 02/24/2025 11:27 AM CDT Temperature 36.8 C (98.3 F) 02/24/2025 10:44 AM CDT Respiratory Rate 16 02/24/2025 11:27 AM CDT Oxygen Saturation 95% 02/24/2025 11:27 AM CDT Inhaled Oxygen Concentration - - Weight 113.4 kg (250 lb) 02/24/2025 5:55 AM CDT Height 172.7 cm (5' 8) 02/24/2025 5:55 AM CDT Body Mass Index 38.01 02/24/2025 5:55 AM CDT Plan of Treatment Health Maintenance Due Date Last Done Comments LIPID TESTING 1981 HIV SCREENING 1996 DTAP/TDAP/TD VACCINES (1 - Tdap) 2000 HEPATITIS B VACCINE (1 of 3 - 19+ 3-dose series) 2000 PNEUMOCOCCAL VACCINE (1 of 2 - PCV) 2000 HPV VACCINE (1 - 3-dose SCDM series) 2008 COVID-19 VACCINE ( - season) 2024 INFLUENZA VACCINE (#1) 2024 SCREENING FOR DIABETES 02/25/2028 , 02/24/2025, 09/28/2024, Additional history exists ZOSTER VACCINE (1 of 2) 2031 HEPATITIS C SCREENING Completed 09/27/2024 DEPRESSION SCREENING Completed 11/12/2024 HIB VACCINE Aged Out No longer eligi ble based on patient's age to complete this topic MENINGOCOCCAL (Group B) VACCINE SHARED DECISION-MAKING Aged Out No longer eligible based on patient's age to complete this topic MENINGOCOCCAL GROUPS A/C/Y/W VACCINE Aged Out No longer eligible based on patient's age to complete this topic Procedures Procedure Name Priority Date/Time Associated Diagnosis Comments GLUCOSE - POINT OF CARE Routine 02/24/2025 9:52 AM CDT ENDOTRACHEAL TUBE NOTE Routine 02/24/2025 7:58 AM CDT OR LAP,CHOLECYSTECTOMY 02/24/2025 7:13 AM CDT Diagnosis unknown BLOOD TYPE VERIFICATION Routine 02/24/2025 6:12 AM CDT TYPE + SCREEN PANEL Pre-Op 02/24/2025 6 :07 AM CDT GLUCOSE - POINT OF CARE Routine 02/24/2025 6:06 AM CDT HEPATITIS SCREEN ACUTE AM Draw 09/27/2024 3:38 AM CDT from Last 3 Months or Most Recently Relevant to Health Maintenance Results * (ABNORMAL) GLUCOSE - POINT OF CARE (02/24/2025 9:52 AM CDT) Only the most recent of2 resultswithin the time period is included. Pathologist [facility] Glucose WB/POC 272(H) 70 - 99 mg/dL 02/24/2025 9:59 AM CDT [facility] Specimen Type Arterial/C apillary 02/24/2025 9:59 AM CDT [facility] Blood BLOOD SPECIMEN / Unknown 02/24/2025 9:52 AM CDT 02/24/2025 9:59 AM CDT us Birdie Huang MD LAB - POINT OF CARE ORDERABLES Final Result [facility] [address] [place] [address] * ETT LINE PERFORMABLE (02/24/2025 7:58 AM CDT) Narrative Gaetano Garcia APRN-CRNA - 02/24/2025 7:58 AM CDT Gaetano Garcia APRN-CRNA 02/24/2025 8:00 AM Endotracheal Tube Placement: Patient Location: OR. Intubation Event Date/Time: 02/24/2025 7:38 AM Procedure: intubation ([id number]) Procedure Section: Sedation: under general anesthesia. Indications for Airway Management: anesthesia Procedure pretreatments used? No Induction: rapid sequence Patient Position: sniffing Mask Ventilation: not attempted. Blade Type: Video (Rodriguez) Blade Size: 2 Laryngoscopy View: grade 1 (full cords) Intubation Adjuncts: cricoid pressure, stylet and video laryngoscope Nasal Airway Size: 8 Tube: endotracheal tube Placement: oral Tube type: cuff - inflated Tube Size (MM): 8 Depth of Insertion (CM): 24 Measured From: lips Cuff volume (mL): 7 Cuff Inflated With: air Number of Attempts: 1. Placement Verified By: direct visualization, bilateral breath sounds, CO2 monitor and chest auscultation Tube secured with: adhesive tape. Dentition unchanged? Yes Difficult Airway? Yes. Technique: video laryngoscope Reason: obesity and other - please comment (hathaway) Procedure Start Time: 02/24/2025 7:38 AM. Staff Section Anesthesia Provider: Gaetano Garcia APRN-[facility] SEASONAL, Performed the procedure Daniel Dhaliwal MD GENERAL ANESTHESIA ORDERABLES Final Result * BLOOD TYPE VERIFICATION (02/24/2025 6:12 AM CDT) ABO Rh B POS 02/24/2025 6:5 5 AM CDT [facility] Blood Bank BLOOD SPECIMEN / Unknown Venipuncture / Unknown 02/24/2025 6:12 AM CDT 02/24/2025 6:15 AM CDT Luis M Del Valle MD LAB - BLOOD BANK ORDERABLES Jane l Result [facility] [address] [place], [place] [id number] [place] [address] * TYPE + SCREEN PANEL (02/24/2025 6:07 AM CDT) ABO Rh B POS 02/24/2025 6:55 AM CDT [facility] Comment:No history; collect retype. Antibody Screen NEG 6:55 AM CDT [facility] Blood Bank BLOOD SPECIMEN / Unknown Venipuncture / Unknown 02/24/2025 6:07 AM CDT 02/24/2025 6:10 AM CDT Luis M Del Valle MD LAB - BLOOD BANK ORDERABLES Jane l Result [facility] [address] [phone] * HEPATITIS SCREEN ACUTE (09/27/2024 3:38 AM CDT) HAV Antibody IgM Non Reactive Non Reactive 09/27/2024 4:45 AM CDT [facility] HBsAg Non Reactive Non Reactive 09/27/2024 4:45 AM CDT [facility] HBc Antibody IgM Non Reactive Non Reactive 09/27/2024 4:45 AM CDT [facility] HCV Antibody Screen Non Reactive Non Reactive 09/27/2024 4:45 AM CDT [facility] Blood BLOOD SPECIMEN / Unknown Lab Venipuncture / Unknown 09/27/2024 3:38 AM CDT 09/27/2024 3:52 AM CDT Narrative [facility] - 09/27/2024 4:45 AM CDT Non Reactive - Antibodies to Hepatitis C virus (HCV) were not detected, result does not exclude early acute HCV infection. Marli Love MD LAB - CHEMISTRY ORDERABLES Final Result Performing Organization Address City/[facility] [employer] de Phone Number [facility] [address] [place] [address] from Last 3 Months or Most Recently Relevant to Health Maintenance Insurance [facility] Advance Directives * Full Code (Latest Code Status on File) Date Activated Date Inactivated Comments 09/27/2024 3:00 AM 09/28/2024 7:37 PM Care Teams Asthma Educator Relationship Specialty Start Date End Date Mariya Cancino APRN-PARAMJIT [address] [place] [phone] PCP - General 07/24/16
--- OUTSIDE RECORDS SUMMARY | 2025-02-26 09:30 | XMS_ITS | Encounter Summary ---
Author Organization [facility] Address [address] [place] [address] Care Team Providers Care Shoe Shiner Name Role Phone Mariya Cancino LINER INSTALLER-SUBSTATION DESIGNER Primary Care Provider [phone]- [phone] Encounter Details Date Type Department Care Team (Late st Contact Info) Description 09/26/2024 Telephone 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
[2025-02-26 09:32] LABS: EDCOVIDSCREEN Negative (Negative); EDINFLUASCREEN Negative (Negative); EDINFLUBSCREEN Negative (Negative)
== END 2025-02-26 09:39 | disposition home or self-care (01) ==
PROVIDERS: Emergency Provider Nurse Practitioner; PCP Nurse Practitioner Family
DX: J32.9 Chronic sinusitis, unspecified (principal); J06.9 Acute upper respiratory infection, unspecified; H65.03 Acute serous otitis media, bilateral; I10 Essential (primary) hypertension; E11.9 Type 2 diabetes mellitus without complications; Z87.891 Personal history of nicotine dependence; Z20.822 Contact with and (suspected) exposure to COVID-19
CPT/HCPCS: 87426; 87804; 99212; G0463